=== PATIENT | male | born 1990 | race Caucasian/White ===

== ENCOUNTER 2019-11-13 04:05 | Emergency (ER) | payer BC ==
[~2019-11-13] VITALS: Ht 177.8 cm; Wt 90.9 kg
[2019-11-13 04:13] VITALS: BP 158/98; TEMP 98.2
[2019-11-13 11:05] VITALS: PULSE 100
== END 2019-11-13 11:05 | disposition home or self-care (01) ==
LOC: COL.ER 04:05
DX: S01.81XA Laceration without foreign body of other part of head, initial encounter (principal); Z23 Encounter for immunization; V86.59XA Driver of other special all-terrain or other off-road motor vehicle injured in nontraffic accident, initial encounter; Y92.830 Public park as the place of occurrence of the external cause